=== PATIENT | female | born 1965 | race American Indian/Alaskan Native ===

== ENCOUNTER 2017-08-21 11:51 | Outpatient (CLI) | payer OTHER ==
--- NOTE | 2017-08-22 15:51 | Mammography Report ---
BILATERAL DIGITAL SCREENING MAMMOGRAM with CAD : 08/21/17 11:51:00 CLINICAL: Routine screening.Status post left benign biopsy in 2003. COMPARISON:None available. FINDINGS: The breasts are heterogeneously dense, which may obscure small masses.Left retroareolar biopsy clip. No mass, architectural distortion or suspicious calcifications. IMPRESSION: No mammographic evidence of malignancy. BI-RADS CATEGORY: 2 -- Benign RECOMMENDATION: Routine mammographic screening in one year. COMMENT: Patient follow-up letters are generated by our [employer] application.
== END 2017-08-21 11:52 | disposition home or self-care (01) ==
LOC: MAMMO 11:51
DX: Z12.31 Encounter for screening mammogram for malignant neoplasm of breast (principal)
CPT/HCPCS: 77067

== ENCOUNTER 2018-08-13 14:08 | Outpatient (CLI) | payer OTHER ==
--- NOTE | 2018-08-13 14:53 | Mammography Report ---
DIGITAL SCREENING MAMMOGRAM WITH CAD INDICATION: Routine screening mammography. TECHNIQUE: Digital bilateral 2D mammography was obtained in the craniocaudal and mediolateral obliq ue projections. This examination was interpreted with the benefit of Computer-Aided Detection analysi s. COMPARISON: 08/21/2017 FINDINGS: Breast Density: The breasts are heterogeneously dense, which may obscure small masses. There is no evidence of dominant mass, suspicious calcifications or architectural distortion in eith er breast. A left biopsy clip at 11:30 o'clock. IMPRESSION: BI-RADS Category 2: Benign. No mammographic evidence of malignancy. Recommend routine screening ma mmography in one year. A "normal" or negative report should not discourage follow up or biopsy of a clinically significant f inding. A written summary of these findings will be mailed to the patient. The patient will be entered into a mammography reporting system which will generate a reminder letter for the patient's next appointmen t at the appropriate interval. The [employer] recommends yearly mammograms starting at age 40 and continuing as l sadaf as a woman is in good health. Breast MRI is recommended for women with an approximate 20-25% or greater lifetime risk of breast cancer, including women with a strong family history of breast or ova jairo cancer or who have been treated for Hodgkin's disease. Signer Name: John Blevins MD Signed: 08/13/2018 2:49 PM Workstation Name: [id number]
== END 2018-08-13 14:09 | disposition home or self-care (01) ==
LOC: MAMMO 14:08
PROVIDERS: ATTEND Internal Medicine
DX: Z12.31 Encounter for screening mammogram for malignant neoplasm of breast (principal)
CPT/HCPCS: 77067

== ENCOUNTER 2020-04-13 10:41 | Outpatient (CLI) | payer OTHER ==
--- NOTE | 2020-04-13 16:43 | Mammography Report ---
DIGITAL SCREENING MAMMOGRAM, 04/13/2020 CLINICAL INFORMATION / INDICATION: Routine screening mammography. SCRN MAMMO TECHNIQUE: Digital bilateral 2D mammography was obtained in the craniocaudal and mediolateral obliqu e projections. COMPARISON: Prior mammograms 08/13/2018 and 08/21/2017 FINDINGS: Breast Density: There are scattered areas of fibroglandular density. No dominant mass, suspicious calcifications, or architectural distortion in either breast. There is a stable biopsy clip in the left breast. There has been no significant change compared with the prior examinations. IMPRESSION: No mammographic evidence of malignancy. Follow up recommendation: Routine yearly BI-RADS Category 2: Benign. A "normal" or negative report should not discourage follow up or biopsy of a clinically significant f inding. A written summary of these findings will be mailed to the patient. The patient will be entered into a mammography reporting system which will generate a reminder letter for the patient's next appointmen t at the appropriate interval. The [employer] recommends yearly mammograms starting at age 40 and continuing as l sadaf as a woman is in good health. Breast MRI is recommended for women with an approximate 20-25% or greater lifetime risk of breast cancer, including women with a strong family history of breast or ova jairo cancer or who have been treated for Hodgkin's disease. Signer Name: Lizzy Hoyos MD Signed: 04/13/2020 4:39 PM Workstation Name: [id number]
== END 2020-04-13 10:42 | disposition home or self-care (01) ==
LOC: MAMMO 10:41
PROVIDERS: ATTEND Family Medicine
DX: Z12.31 Encounter for screening mammogram for malignant neoplasm of breast (principal); N64.89 Other specified disorders of breast
CPT/HCPCS: 77067

== ENCOUNTER 2021-04-22 09:43 | Outpatient (CLI) | payer OTHER ==
--- NOTE | 2021-04-22 11:43 | Mammography Report ---
DIGITAL SCREENING MAMMOGRAM WITH CAD, 04/22/2021 CLINICAL INFORMATION / INDICATION: Routine screening mammography. SCREENING MAMMOGRAM TECHNIQUE: Digital bilateral 2D mammography was obtained in the craniocaudal and mediolateral obliqu e projections. This examination was interpreted with the benefit of Computer-Aided Detection analysis . COMPARISON: 04/13/2020 and 08/13/2018 FINDINGS: Breast Density: The breasts are heterogeneously dense, which may obscure small masses. No dominant mass, suspicious calcifications, or architectural distortion in either breast. Biopsy clip again noted on the left. IMPRESSION: No mammographic evidence of malignancy. Follow up recommendation: Routine yearly BI-RADS Category 2: BENIGN. A "normal" or negative report should not discourage follow up or biopsy of a clinically significant f inding. A written summary of these findings will be mailed to the patient. The patient will be entered into a mammography reporting system which will generate a reminder letter for the patient's next appointmen t at the appropriate interval. The [employer] recommends yearly mammograms starting at age 40 and continuing as l sadaf as a woman is in good health. Breast MRI is recommended for women with an approximate 20-25% or greater lifetime risk of breast cancer, including women with a strong family history of breast or ova jairo cancer or who have been treated for Hodgkin's disease. Signer Name: Marcos Sanches MD Signed: 04/22/2021 11:39 AM Workstation Name: [id number]
== END 2021-04-22 09:44 | disposition home or self-care (01) ==
LOC: MAMMO 09:43
PROVIDERS: ATTEND Family Medicine
DX: Z12.31 Encounter for screening mammogram for malignant neoplasm of breast (principal); N64.89 Other specified disorders of breast
CPT/HCPCS: 77067